=== PATIENT | male | born 1955 | race Caucasian/White ===

== ENCOUNTER 2023-12-15 04:28 | Day surgery (SDC) | payer OTHER, MEDICARE ==
[2023-12-09 11:03] VITALS: BMI 27.6
[2023-12-15 09:51] VITALS: TEMP 98.6
[2023-12-15 10:06] VITALS: BP 87/45; PULSE 77; RESP 17
== END 2023-12-15 10:30 | disposition home or self-care (01) ==
LOC: JASU-ENDO 04:28
PROVIDERS: ATTEND Internal Medicine Gastroenterology
PROC: 0DBK8ZX Excision of Ascending Colon, Via Natural or Artificial Opening Endoscopic, Diagnostic (ICD-10-PCS; principal; 2023-12-15 09:00)
DX: Z12.11 Encounter for screening for malignant neoplasm of colon (principal); D12.2 Benign neoplasm of ascending colon; K64.8 Other hemorrhoids
CPT/HCPCS: 88305-TC